=== PATIENT | female | born 1970 | race African-American/Black ===

== ENCOUNTER → 2016-07-09 | Outpatient (CLI) | payer OTHER ==
[~2016-07-09] MED LIST: PROBIOTIC FORMU1 CAP PO
== END ==
LOC: MC.RAD 11:39
DX: Z12.31 Encounter for screening mammogram for malignant neoplasm of breast (principal)

== ENCOUNTER 2017-03-29 06:21 | Day surgery (SDC) | payer OTHER ==
[~2017-03-29] VITALS: Ht 165.1 cm; Wt 78.3 kg
[2017-03-29] MEDS ORDERED: SINGULAIR 110 MG/TAB PO (06:39)
[2017-03-29] MEDS ORDERED: BENADRYL25 M2 PO (06:39)
[2017-03-29] MEDS ORDERED: NASONEX SPRAY17 GM NS (06:40)
[2017-03-29] MEDS ORDERED: ZANTAC 150MG T150 MG PO (06:40)
[2017-03-29] MEDS ORDERED: ALEVE 220MG220 MG PO (06:41)
[2017-03-29] MEDS ORDERED: TYLENOL 325MG325 MG PO (06:41)
[2017-03-29] MEDS ORDERED: VITAMIN B-625 MG PO (06:41)
[2017-03-29] MEDS ORDERED: VITAMIN C500 MG PO (06:42)
[2017-03-29] MEDS ORDERED: B-12 100 MCG PO (06:42)
[2017-03-29] MEDS ORDERED: OMEGA-3 1000 MG1 CAP PO (06:42)
[2017-03-29 06:53] VITALS: BP 130/85; PULSE 82; TEMP 98.3
[2017-03-29 08:05] VITALS: BP 124/75; PULSE 89; TEMP 97.8
[2017-03-29 08:15] VITALS: BP 119/78; PULSE 90
[2017-03-29] MEDS ORDERED: PROTONIX 40MG T40 MG PO (08:17)
[2017-03-29 08:30] VITALS: BP 117/75; PULSE 85
[2017-04-03 12:21] LABS: PATHOLOGY PLS
== END 2017-03-29 08:59 | disposition home or self-care (01) ==
LOC: SDCO 06:21
PROVIDERS: Internal Medicine Gastroenterology
DX: K22.70 Barrett's esophagus without dysplasia (principal); K21.9 Gastro-esophageal reflux disease without esophagitis
CPT/HCPCS: J2250; J2405; J3010; J7030

== ENCOUNTER → 2017-08-01 | Outpatient (CLI) | payer OTHER ==
[~2017-08-01] MED LIST changes: +ALEVE 220MG220 MG PO; +B-12 100 MCG PO; +BENADRYL25 M2 PO; +NASONEX SPRAY17 GM NS; +OMEGA-3 1000 MG1 CAP PO; +PROTONIX 40MG T40 MG PO; +SINGULAIR 110 MG/TAB PO; +TYLENOL 325MG325 MG PO; +VITAMIN B-625 MG PO; +VITAMIN C500 MG PO; +ZANTAC 150MG T150 MG PO
== END ==
LOC: MC.RAD 07:00
DX: Z12.31 Encounter for screening mammogram for malignant neoplasm of breast (principal)

== ENCOUNTER → 2018-07-31 | Outpatient (CLI) | payer OTHER | LOC: COL.RAD 10:31 | DX: T18.2XXA Foreign body in stomach, initial encounter (principal) ==

== ENCOUNTER → 2018-08-14 | Outpatient (CLI) | payer OTHER | LOC: MC.RAD 07:08 | DX: Z12.31 Encounter for screening mammogram for malignant neoplasm of breast (principal) ==

== ENCOUNTER 2019-04-24 05:55 | Emergency (ER) | payer OTHER ==
[~2019-04-24] VITALS: Ht 165.1 cm; Wt 77.3 kg
[2019-04-24 06:05] VITALS: BP 124/66; TEMP 98.5
[2019-04-24 06:44] LABS: BASO % 0.3 % (0.0-2.0); EOS # 0.1 (0.0-0.7); EOS % 1.8 % (0-4.0); GRAN # 3.2 (1.4-6.5); GRAN % 53.2 % (42.2-75.2); HEMATOCRIT 39.2 % (37.0-47.0); HEMOGLOBIN 12.7 g/dl (12.5-16.0); LYMPH % 33.4 % (20.0-51.0); MEAN CELL VOLUME 86 fl (80.0-100.0); MEAN CORPUSCULAR HEMOGLOBIN 28 pg (27.0-31.0); MEAN CORPUSCULAR HGB CONC 32 g/dl (33.0-37.0); MEAN PLATELET VOLUME 9.8 fl (7.4-10.4); MONO # 0.7 (0.1-0.6); PLATELET COUNT 377 K/mm3 (130-400); RED BLOOD COUNT 4.57 M/mm3 (4.10-5.30); REDCELL DISTRIBUTION WIDTH-CV 13.2 % (11.5-14.5)
[2019-04-24 07:01] LABS: URIC ACID 5.4 mg/dL (2.5-6.2)
[2019-04-24 07:03] LABS: C-REACTIVE PROTEIN < 0.5 mg/dL (0.0-0.9)
[2019-04-24] MEDS ORDERED: NORCO 325 MG-51 TAB PO (07:19)
[2019-04-24] MEDS ORDERED: VOLTAREN 75 DR75 MG PO (07:19)
[2019-04-24 07:55] VITALS: PULSE 74
== END 2019-04-24 07:55 | disposition home or self-care (01) ==
LOC: COL.ER 05:55
PROVIDERS: Emergency Medicine
DX: G56.01 Carpal tunnel syndrome, right upper limb (principal)
CPT/HCPCS: J7512